=== PATIENT | female | born 1930 | race Caucasian/White ===

== ENCOUNTER 2016-07-08 16:09 | Inpatient (IN) | payer MEDICARE, OTHER ==
[~2016-07-08] VITALS: Ht 175.3 cm; Wt 54.2 kg
[2016-07-08 16:54] LABS: Basophils # (auto) 0 uL; Basophils % (auto) 0.4 % (0.0-2.0); Eosinophils # (auto) 0 uL; Eosinophils % (auto) 0.7 % (0.0-7.0); Hematocrit 44.3 % (36.0-46.0); Hemoglobin 14.2 g/dL (12.2-16.2); Lymphocytes # (auto) 2.7 uL; Lymphocytes % (auto) 35.8 % (10.0-50.0); Mean Corpuscular Volume 93.8 fL (80.0-100.0); Mean Platelet Volume 8.8 fL (7.4-10.4); Monocytes # (auto) 0.7 uL; Monocytes % (auto) 8.9 % (0.0-12.0); Neutrophils # (auto) 4.1 uL; Neutrophils % (auto) 54.2 % (37.0-80.0); Platelet Count (auto) 239 10^3/uL (140-450); Red Cell Distribution Width 17.7 % (11.6-16.0); White Blood Cell 7.5 10^3/uL (4.4-10.8)
[2016-07-08 17:22] LABS: Albumin 3.6 g/dL (3.4-5.0); BUN/Creatinine Ratio 32.2; Calcium 8.7 mg/dL (8.5-10.1); Magnesium 2.3 mg/dL (1.6-2.6); Potassium 4.5 mmol/L (3.5-5.1)
[2016-07-08 17:25] LABS: Bilirubin, Total 0.3 mg/dL (0.2-1.0); Total Protein 6.7 g/dL (6.4-8.2)
[2016-07-08 22:57] LABS: INR 1.05 (0.9-1.15); Partial Thromboplastin Time 24.4 sec (22.64-33.71); Prothrombin Time 10.8 sec (9.37-12.3)
[2016-07-08 23:12] LABS: B-Type Natriuretic Peptide 367.92 pg/mL (0-100); Temperature: 22.7 C (20.0-25.0)
[2016-07-08] MEDS ORDERED: APIX5TAB PO (23:24)
[2016-07-08] MEDS ORDERED: SOTA80TA PO (23:24)
[2016-07-08] MEDS ORDERED: POTA10TA34 PO (23:24)
[2016-07-09] MEDS ORDERED: NITROGLYCERIN 0.4 MG SL TAB SL PRN (00:45)
[2016-07-09] MEDS: MORPHINE SULF INJ 2 MG/ML SYRINGE 1ML IV PRN ×3 (01:31→02:36)
[2016-07-09] MEDS: POTASSIUM CHL 10 Meq TABLET PO SCH (10:09)
[2016-07-09] MEDS: SOTALOL HCL 80 MG TAB PO SCH ×2 (10:10→23:39)
[2016-07-09 14:51] VITALS: BP 150/60
[2016-07-09 21:20] VITALS: BP 110/74
[2016-07-10 05:10] VITALS: BP 148/59
[2016-07-10 09:00] VITALS: BP 99/58
[2016-07-10] MEDS: SOTALOL HCL 80 MG TAB PO SCH ×2 (09:39→23:20)
[2016-07-10] MEDS: POTASSIUM CHL 10 Meq TABLET PO SCH (09:39)
[2016-07-10 13:00] VITALS: BP 99/58
[2016-07-10 17:00] VITALS: BP 132/55
[2016-07-10 22:27] VITALS: BP 96/51
[2016-07-10] MEDS: ZOLPIDEM TARTRATE 5 MG TAB PO PRN (23:04)
[2016-07-11 05:07] VITALS: BP 97/63
[2016-07-11 08:39] VITALS: BP 126/73
[2016-07-11] MEDS: POTASSIUM CHL 10 Meq TABLET PO SCH (10:02)
[2016-07-11] MEDS: SOTALOL HCL 80 MG TAB PO SCH ×2 (10:04→23:07)
[2016-07-11 12:43] VITALS: BP 122/84
[2016-07-11 17:27] VITALS: BP 115/68
[2016-07-11] MEDS: ZOLPIDEM TARTRATE 5 MG TAB PO PRN (21:40)
[2016-07-11] MEDS: MAGNESIUM OXIDE 400 MG TAB PO SCH (21:40)
[2016-07-11] MEDS: MORPHINE SULF INJ 2 MG/ML SYRINGE 1ML IV PRN (21:50)
[2016-07-11 22:00] VITALS: BP 98/66
[2016-07-12 05:00] VITALS: BP 123/56
[2016-07-12 09:00] VITALS: BP 100/46
[2016-07-12] MEDS: POTASSIUM CHL 10 Meq TABLET PO SCH (09:52)
[2016-07-12] MEDS: SOTALOL HCL 80 MG TAB PO SCH ×2 (09:52→22:00)
[2016-07-12] MEDS: MAGNESIUM OXIDE 400 MG TAB PO SCH ×2 (09:52→22:07)
[2016-07-12 13:00] VITALS: BP 90/59
[2016-07-12 15:00] VITALS: BP 100/58
[2016-07-12] MEDS: ZOLPIDEM TARTRATE 5 MG TAB PO PRN (19:42)
[2016-07-12 21:28] VITALS: BP 92/58
[2016-07-13 04:54] VITALS: BP 117/51
[2016-07-13 09:00] VITALS: BP 103/72
[2016-07-13] MEDS: MAGNESIUM OXIDE 400 MG TAB PO SCH ×2 (10:03→22:01)
[2016-07-13] MEDS: POTASSIUM CHL 10 Meq TABLET PO SCH (10:03)
[2016-07-13] MEDS: SOTALOL HCL 80 MG TAB PO SCH ×2 (10:04→22:02)
[2016-07-13 13:00] VITALS: BP 92/58
[2016-07-13 16:54] LABS: Basophils # (auto) 0 uL; Basophils % (auto) 0.3 % (0.0-2.0); Eosinophils # (auto) 0 uL; Eosinophils % (auto) 0.6 % (0.0-7.0); Hematocrit 40.2 % (36.0-46.0); Hemoglobin 13.1 g/dL (12.2-16.2); Lymphocytes # (auto) 1.9 uL; Lymphocytes % (auto) 26.8 % (10.0-50.0); Mean Corpuscular Hemoglobin 31.2 pg (28.0-32.0); Mean Corpuscular Hgb Conc. 32.5 g/dL (32.0-36.0); Mean Corpuscular Volume 95.8 fL (80.0-100.0); Mean Platelet Volume 9.4 fL (7.4-10.4); Monocytes # (auto) 0.5 uL; Monocytes % (auto) 7.3 % (0.0-12.0); Neutrophils # (auto) 4.5 uL; Platelet Count (auto) 154 10^3/uL (140-450); Red Cell Distribution Width 17.8 % (11.6-16.0)
[2016-07-13 16:58] LABS: BUN/Creatinine Ratio 42.6; Calcium 8.3 mg/dL (8.5-10.1); Potassium 4.5 mmol/L (3.5-5.1)
[2016-07-13 17:04] VITALS: BP 109/62
[2016-07-13 17:06] LABS: INR 1.06 (0.9-1.15); Partial Thromboplastin Time 25.2 sec (22.64-33.71); Prothrombin Time 10.9 sec (9.37-12.3)
[2016-07-13 22:00] VITALS: BP 126/70
[2016-07-13] MEDS: ZOLPIDEM TARTRATE 5 MG TAB PO PRN (22:02)
[2016-07-14 05:00] VITALS: BP 132/65
[2016-07-14 09:00] VITALS: BP 107/70
[2016-07-14] MEDS: POTASSIUM CHL 10 Meq TABLET PO SCH (09:32)
[2016-07-14] MEDS: MAGNESIUM OXIDE 400 MG TAB PO SCH ×2 (09:32→21:54)
[2016-07-14] MEDS: SOTALOL HCL 80 MG TAB PO SCH ×2 (09:33→21:55)
[2016-07-14] MEDS: BOOST PLUS 8 ounce PO SCH ×2 (12:00→18:00)
[2016-07-14 13:00] VITALS: BP 122/56
[2016-07-14] MEDS ORDERED: ceFAZolin 1GM/50ML D5W 50 ML IV ONE (13:15)
[2016-07-14] MEDS ORDERED: VANCOMYCIN 1GM/250ML D5W 250 ML IV ONE (13:45)
[2016-07-14] MEDS ORDERED: LIDOCAINE 2%HCL (LOCAL ANESTH.) INJ 20ML MDV ONE (13:48)
[2016-07-14] MEDS ORDERED: VANCOMYCIN HCL 1000 MG VL ONE (14:13)
[2016-07-14] MEDS ORDERED: MIDAZOLAM HCL 1MG/1ML-2 ML VIAL ONE (14:19)
[2016-07-14] MEDS ORDERED: fentaNYL CITRATE 100 MCG/2 ML VL ONE (14:19)
[2016-07-14] MEDS: HYDROcodone-ACET 5/325MG TAB PO PRN (20:26)
[2016-07-14] MEDS: ceFAZolin 1GM/50ML D5W 50 ML IV SCH (21:53)
[2016-07-14] MEDS: ZOLPIDEM TARTRATE 5 MG TAB PO PRN (21:54)
[2016-07-14 22:00] VITALS: BP 109/55
[2016-07-14] MEDS ORDERED: ceFAZolin 1GM/50ML D5W 50 ML IV SCH (22:00)
[2016-07-15 05:00] VITALS: BP 130/94
[2016-07-15 05:09] LABS: BUN/Creatinine Ratio 33.3
[2016-07-15] MEDS: ceFAZolin 1GM/50ML D5W 50 ML IV SCH (05:52)
[2016-07-15] MEDS: BOOST PLUS 8 ounce PO SCH ×3 (08:00→18:12)
[2016-07-15 09:00] VITALS: BP 107/66
[2016-07-15] MEDS ORDERED: VANCOMYCIN 1GM/250ML D5W 250 ML IV SCH ×2 (10:00→14:00)
[2016-07-15] MEDS: MAGNESIUM OXIDE 400 MG TAB PO SCH ×2 (10:52→22:39)
[2016-07-15] MEDS: POTASSIUM CHL 10 Meq TABLET PO SCH (10:52)
[2016-07-15] MEDS: SOTALOL HCL 80 MG TAB PO SCH ×2 (10:53→22:41)
[2016-07-15 12:56] VITALS: BP 92/57
[2016-07-15 17:00] VITALS: BP 132/61
[2016-07-15] MEDS: CEPHALEXIN 250 MG CAP PO SCH (18:12)
[2016-07-15] MEDS: HYDROcodone-ACET 5/325MG TAB PO PRN (21:33)
[2016-07-15 21:52] VITALS: BP 124/64
[2016-07-16] MEDS: CEPHALEXIN 250 MG CAP PO SCH ×4 (00:12→17:38)
[2016-07-16] MEDS: ZOLPIDEM TARTRATE 5 MG TAB PO PRN ×2 (00:17→23:55)
[2016-07-16 04:52] VITALS: BP 111/72
[2016-07-16] MEDS: BOOST PLUS 8 ounce PO SCH ×3 (08:00→17:38)
[2016-07-16 08:56] VITALS: BP 153/54
[2016-07-16] MEDS: POTASSIUM CHL 10 Meq TABLET PO SCH (10:36)
[2016-07-16] MEDS: SOTALOL HCL 80 MG TAB PO SCH ×2 (10:36→23:24)
[2016-07-16] MEDS: MAGNESIUM OXIDE 400 MG TAB PO SCH ×2 (10:36→23:24)
[2016-07-16 12:51] VITALS: BP 120/47
[2016-07-16 16:34] VITALS: BP 105/36
[2016-07-16 21:09] VITALS: BP 101/37
[2016-07-17] MEDS: CEPHALEXIN 250 MG CAP PO SCH ×4 (00:33→17:35)
[2016-07-17 04:46] VITALS: BP 123/56
[2016-07-17 06:22] LABS: Basophils # (auto) 0 uL; Basophils % (auto) 0.3 % (0.0-2.0); Eosinophils # (auto) 0.1 uL; Eosinophils % (auto) 1.3 % (0.0-7.0); Hematocrit 38.4 % (36.0-46.0); Hemoglobin 12.4 g/dL (12.2-16.2); Lymphocytes # (auto) 1.9 uL; Lymphocytes % (auto) 29.4 % (10.0-50.0); Mean Corpuscular Hemoglobin 30.2 pg (28.0-32.0); Mean Corpuscular Hgb Conc. 32.3 g/dL (32.0-36.0); Mean Corpuscular Volume 93.6 fL (80.0-100.0); Mean Platelet Volume 8.8 fL (7.4-10.4); Monocytes # (auto) 0.6 uL; Monocytes % (auto) 8.9 % (0.0-12.0); Neutrophils % (auto) 60.1 % (37.0-80.0); Platelet Count (auto) 165 10^3/uL (140-450); Red Cell Distribution Width 16.6 % (11.6-16.0); White Blood Cell 6.6 10^3/uL (4.4-10.8)
[2016-07-17 06:39] LABS: INR 1.01 (0.9-1.15); Partial Thromboplastin Time 25.9 sec (22.64-33.71); Prothrombin Time 10.4 sec (9.37-12.3)
[2016-07-17 08:55] VITALS: BP 112/74
[2016-07-17] MEDS: BOOST PLUS 8 ounce PO SCH ×3 (10:28→17:35)
[2016-07-17] MEDS: POTASSIUM CHL 10 Meq TABLET PO SCH (10:30)
[2016-07-17] MEDS: SOTALOL HCL 80 MG TAB PO SCH ×2 (10:30→21:32)
[2016-07-17] MEDS: MAGNESIUM OXIDE 400 MG TAB PO SCH ×2 (10:30→21:31)
[2016-07-17 13:00] VITALS: BP 125/65
[2016-07-17 17:08] VITALS: BP 98/57
[2016-07-17] MEDS: ZOLPIDEM TARTRATE 5 MG TAB PO PRN (21:31)
[2016-07-17 21:49] VITALS: BP 101/64
[2016-07-18] MEDS: CEPHALEXIN 250 MG CAP PO SCH ×5 (00:42→23:15)
[2016-07-18 04:56] VITALS: BP 134/53
[2016-07-18 08:50] VITALS: BP 112/78
[2016-07-18] MEDS: POTASSIUM CHL 10 Meq TABLET PO SCH (10:48)
[2016-07-18] MEDS: MAGNESIUM OXIDE 400 MG TAB PO SCH ×2 (10:49→21:52)
[2016-07-18] MEDS: SOTALOL HCL 80 MG TAB PO SCH ×2 (10:51→21:53)
[2016-07-18] MEDS ORDERED: LIDOCAINE 2%HCL (LOCAL ANESTH.) INJ 20ML MDV ONE (12:41)
[2016-07-18 12:50] VITALS: BP 129/69
[2016-07-18] MEDS ORDERED: VANCOMYCIN 1GM/250ML D5W 250 ML IV ONE (14:16)
[2016-07-18] MEDS ORDERED: MIDAZOLAM HCL 1MG/1ML-2 ML VIAL ONE (14:29)
[2016-07-18] MEDS ORDERED: fentaNYL CITRATE 100 MCG/2 ML VL ONE (14:29)
[2016-07-18] MEDS ORDERED: VANCOMYCIN HCL 1000 MG VL ONE (14:37)
[2016-07-18] MEDS ORDERED: ceFAZolin 1GM VL ONE (15:00)
[2016-07-18] MEDS: BOOST PLUS 8 ounce PO SCH ×2 (15:46→17:59)
[2016-07-18] MEDS: HYDROcodone-ACET 5/325MG TAB PO PRN (16:04)
[2016-07-18 16:50] VITALS: BP 110/67
[2016-07-18] MEDS: LEVOFLOXACIN 500 MG TAB PO SCH (16:56)
[2016-07-18 21:35] VITALS: BP 131/84
[2016-07-18] MEDS: ZOLPIDEM TARTRATE 5 MG TAB PO PRN (22:01)
[2016-07-19] MEDS: HYDROcodone-ACET 5/325MG TAB PO PRN ×2 (02:45→19:39)
[2016-07-19 05:00] VITALS: BP 131/58
[2016-07-19] MEDS: CEPHALEXIN 250 MG CAP PO SCH ×4 (05:38→23:33)
[2016-07-19] MEDS: BOOST PLUS 8 ounce PO SCH ×3 (08:00→18:27)
[2016-07-19 09:00] VITALS: BP 118/51
[2016-07-19] MEDS: SOTALOL HCL 80 MG TAB PO SCH ×2 (10:08→21:45)
[2016-07-19] MEDS: POTASSIUM CHL 10 Meq TABLET PO SCH (10:09)
[2016-07-19] MEDS: MAGNESIUM OXIDE 400 MG TAB PO SCH ×2 (10:13→21:47)
[2016-07-19] MEDS: LEVOFLOXACIN 500 MG TAB PO SCH (10:13)
[2016-07-19 13:00] VITALS: BP 109/46
[2016-07-19 17:00] VITALS: BP 120/74
[2016-07-19 22:00] VITALS: BP 97/52
[2016-07-19] MEDS: ZOLPIDEM TARTRATE 5 MG TAB PO PRN (23:34)
[2016-07-20 05:00] VITALS: BP 134/74
[2016-07-20] MEDS: CEPHALEXIN 250 MG CAP PO SCH ×4 (05:56→23:34)
[2016-07-20 08:59] VITALS: BP 131/66
[2016-07-20] MEDS: POTASSIUM CHL 10 Meq TABLET PO SCH (10:52)
[2016-07-20] MEDS: BOOST PLUS 8 ounce PO SCH ×3 (10:52→17:50)
[2016-07-20] MEDS: LEVOFLOXACIN 500 MG TAB PO SCH (10:52)
[2016-07-20] MEDS: MAGNESIUM OXIDE 400 MG TAB PO SCH ×2 (10:52→21:34)
[2016-07-20] MEDS: SOTALOL HCL 80 MG TAB PO SCH ×2 (10:53→21:34)
[2016-07-20 12:57] VITALS: BP 115/50
[2016-07-20 16:46] VITALS: BP 110/68
[2016-07-20] MEDS: HYDROcodone-ACET 5/325MG TAB PO PRN (20:57)
[2016-07-20] MEDS: ZOLPIDEM TARTRATE 5 MG TAB PO PRN ×2 (21:01→21:35)
[2016-07-20 21:56] VITALS: BP 118/61
[2016-07-21 05:07] VITALS: BP 136/74
[2016-07-21] MEDS: CEPHALEXIN 250 MG CAP PO SCH (05:51)
[2016-07-21] MEDS: BOOST PLUS 8 ounce PO SCH (08:00)
[2016-07-21 09:00] VITALS: BP 134/72
[2016-07-21] MEDS: LEVOFLOXACIN 500 MG TAB PO SCH (10:30)
[2016-07-21] MEDS: MAGNESIUM OXIDE 400 MG TAB PO SCH (10:30)
[2016-07-21] MEDS: POTASSIUM CHL 10 Meq TABLET PO SCH (10:30)
[2016-07-21] MEDS: SOTALOL HCL 80 MG TAB PO SCH (10:36)
[2016-07-21 12:10] VITALS: BP 134/72
== END 2016-07-21 12:10 | disposition home or self-care (01) | DRG 260 ==
LOC: ER 16:12 → TELE 16:13 → TELE-E-ADS 07-09 14:58 → TELE-EAST 07-09 18:16
PROVIDERS: ADMIT Internal Medicine Cardiovascular Disease; ATTEND Internal Medicine Cardiovascular Disease
PROC: 02WA0MZ Revision of Cardiac Lead in Heart, Open Approach (ICD-10-PCS; principal; 2016-07-15)
DX: I48.91 Unspecified atrial fibrillation (principal); I50.23 Acute on chronic systolic (congestive) heart failure; T82.120A Displacement of cardiac electrode, initial encounter; D68.59 Other primary thrombophilia; I82.B12 Acute embolism and thrombosis of left subclavian vein; I49.5 Sick sinus syndrome; J44.9 Chronic obstructive pulmonary disease, unspecified; R53.1 Weakness; Z99.81 Dependence on supplemental oxygen; Z95.0 Presence of cardiac pacemaker; Z91.19 Patient's noncompliance with other medical treatment and regimen
CPT/HCPCS: 36415; 71010; 71020; 80048; 80053; 83735; 83880; 84484; 85025; 85379; 85610; 85730; 93005; 94761; 99152; J0690; J2250